=== PATIENT | male | born 1950 | race Caucasian/White ===

== ENCOUNTER → 2018-04-21 10:34 | Outpatient (CLI) | payer MEDICARE, BC ==
[2015-09-19 12:44] VITALS: BMI 27.6
[~2018-04-21 10:34] MED LIST: PERCOCET 10/3251 TA1 PO
== END | disposition home or self-care (01) ==
LOC: D.CT 10:34
DX: R10.9 Unspecified abdominal pain (principal)

== ENCOUNTER → 2018-11-05 08:07 | Outpatient (CLI) | payer MEDICARE, BC ==
[2015-09-19 12:44] VITALS: BMI 27.6
[2018-11-05 09:31] LABS: ALBUMIN 3.8 g/dL (3.4-5.0); BILIRUBIN - DIRECT 0.1 mg/dL (0.00-0.30); BILIRUBIN - INDIRECT 0.22 mg/dL (0.00-1.00); BILIRUBIN - TOTAL 0.32 mg/dL (0.2-1.3); PROTEIN - SERUM 7.1 g/dL (6.4-8.2)
== END | disposition home or self-care (01) ==
LOC: D.LAB 08:07 → D.US 08:30
PROVIDERS: ATTEND Internal Medicine Gastroenterology
DX: K76.0 Fatty (change of) liver, not elsewhere classified (principal)

== ENCOUNTER 2019-04-05 11:05 | Emergency (ER) | payer MEDICARE, BC ==
[~2019-04-05] VITALS: Ht 175.3 cm; Wt 92.7 kg
[2019-04-05 11:07] VITALS: Ht 175.3 cm; Wt 92.7 kg
[2019-04-05 11:33] LABS: BASOPHILS 0.3 % (0-2); EOSINOPHILS 3.6 % (0-7); HEMATOCRIT 40.5 % (42.0-54.0); HEMOGLOBIN 14.8 g/dL (13.5-17.5); IMMATURE GRANULOCYTES 0.4 % (0-5); LYMPHOCYTES 30.2 % (15-50); MCH 34.1 pg (26.0-34.0); MCHC 36.5 g/dL (31.0-37.0); MCV 93.3 fL (80.0-100.0); MEAN PLATELET VOLUME 9.3 fL (7.4-10.4); MONOCYTES 9.7 % (2-11); NEUTROPHILS 55.8 % (40-80); PLATELET COUNT 211 10x3/uL (130-400); RBC 4.34 10x6/uL (4.20-6.10); WBC 7.3 10x3/uL (4.8-10.8)
[2019-04-05 11:48] LABS: ALBUMIN 3.6 g/dL (3.4-5.0); ALKALINE PHOSPHATASE 80 U/L (46-116); ALT (SGPT) 27 U/L (10-68); BILIRUBIN - TOTAL 0.32 mg/dL (0.2-1.3); CALC OSMOLALITY 279 mosm/kg (275-300); CALCIUM 8.4 mg/dL (8.5-10.1); CARBON DIOXIDE 25.4 mmol/L (21.0-32.0); CHLORIDE - SERUM 105 mmol/L (98-107); GLUCOSE 126 mg/dL (74-106); SODIUM 139 mmol/L (136-145); UREA NITROGEN 12 mg/dL (7-18); eGFR NON AFRICAN AMERICAN 79 mL/min (90-120)
[2019-04-05 11:49] LABS: APTT 29.3 SECONDS (22.8-39.4); INR 1.12 (0.85-1.17); PROTIME 13.9 SECONDS (11.6-15.0)
[2019-04-05 12:00] LABS: CREATINE KINASE 79 UL (21-232); MAGNESIUM - SERUM 1.9 mg/dL (1.8-2.4); THYROID STIMULATING HORMONE 0.84 uIU/mL (0.36-3.74)
[2019-04-05 12:01] LABS: TROPONIN-I 0.016 ng/mL (0.000-0.060)
[2019-04-05] MEDS ORDERED: BAYER CHEWABLE81 MG PO (12:37)
[2019-04-05 13:14] LABS: APPEARANCE CLEAR (CLEAR); BACTERIA FEW /hpf (NONE SEEN); BILIRUBIN NEGATIVE (NEGATIVE); COLOR YELLOW (YELLOW); EPITHELIAL CELLS 0-5 /hpf (0-5); GLUCOSE NEGATIVE (NEGATIVE); KETONE NEGATIVE (NEGATIVE); MUCUS >1+ /lpf (NONE SEEN); NITRITE NEGATIVE (NEGATIVE); PROTEIN NEGATIVE (NEGATIVE); RED CELLS - URINE 0-5 /hpf (0-5); UROBILINOGEN NORMAL (NORMAL); WHITE CELLS - URINE 0-5 /hpf (0-5)
[2019-04-05 13:15] LABS: SPERMATOZOA PRESENT /hpf (NONE SEEN)
[2019-04-05 15:15] VITALS: BP 155/77
== END 2019-04-05 15:16 | disposition home or self-care (01) ==
LOC: D.ER 11:05
PROVIDERS: Emergency Medicine
DX: R42 Dizziness and giddiness (principal); R51 Headache; H57.9 Unspecified disorder of eye and adnexa

== ENCOUNTER → 2019-05-05 08:51 | Outpatient (CLI) | payer MEDICARE, BC ==
[2019-04-05 11:07] VITALS: BMI 30.2
[~2019-05-05 08:51] MED LIST changes: +BAYER CHEWABLE81 MG PO
[2019-05-05 09:28] LABS: ALBUMIN 3.9 g/dL (3.4-5.0); BILIRUBIN - DIRECT 0.08 mg/dL (0.00-0.30); BILIRUBIN - INDIRECT 0.25 mg/dL (0.00-1.00); BILIRUBIN - TOTAL 0.33 mg/dL (0.2-1.3)
== END | disposition home or self-care (01) ==
LOC: D.LAB 08:15 → D.US 09:30
PROVIDERS: ATTEND Internal Medicine Gastroenterology
DX: K76.0 Fatty (change of) liver, not elsewhere classified (principal)

== ENCOUNTER → 2019-11-02 07:35 | Outpatient (CLI) | payer MEDICARE, BC ==
[2019-04-05 11:07] VITALS: BMI 30.2
[2019-11-02 08:19] LABS: ALBUMIN 3.8 g/dL (3.4-5.0); BILIRUBIN - DIRECT 0.1 mg/dL (0.00-0.30); BILIRUBIN - INDIRECT 0.23 mg/dL (0.00-1.00); BILIRUBIN - TOTAL 0.33 mg/dL (0.2-1.3); PROTEIN - SERUM 7.3 g/dL (6.4-8.2)
== END | disposition home or self-care (01) ==
LOC: D.US 07:30
PROVIDERS: ATTEND Internal Medicine Gastroenterology
DX: K76.0 Fatty (change of) liver, not elsewhere classified (principal)

== ENCOUNTER → 2021-03-03 08:09 | Outpatient (CLI) | payer MEDICARE, BC ==
[2019-04-05 11:07] VITALS: BMI 30.2
[2021-03-03 08:41] LABS: ALBUMIN 4.2 g/dL (3.4-5.0); BILIRUBIN - DIRECT 0.1 mg/dL (0.00-0.30); BILIRUBIN - INDIRECT 0.32 mg/dL (0.00-1.00); BILIRUBIN - TOTAL 0.42 mg/dL (0.2-1.3); PROTEIN - SERUM 7.5 g/dL (6.4-8.2)
== END | disposition home or self-care (01) ==
LOC: D.US 08:09
PROVIDERS: ATTEND Internal Medicine Gastroenterology
DX: K76.0 Fatty (change of) liver, not elsewhere classified (principal)